=== PATIENT | female | born 1980 | race Two or more races ===

== ENCOUNTER 2019-05-13 00:06 | Emergency (ER) | payer MEDICAID ==
[~2019-05-13] VITALS: Ht 160 cm; Wt 86.2 kg
[~2019-05-13 00:06] MED LIST: PREN-96 OR
[2019-05-13 00:25] VITALS: BP 110/57
[2019-05-13 01:01] LABS: Basophils # (auto) 0.1 uL; Basophils % (auto) 0.8 % (0.0-2.0); Eosinophils # (auto) 0.1 uL; Eosinophils % (auto) 0.6 % (0.0-7.0); Hematocrit 40.1 % (36.0-46.0); Hemoglobin 13.6 g/dL (12.2-16.2); Lymphocytes # (auto) 1.6 uL; Lymphocytes % (auto) 9.5 % (10.0-50.0); Mean Corpuscular Volume 85.2 fL (80.0-100.0); Monocytes # (auto) 0.8 uL; Monocytes % (auto) 4.7 % (0.0-12.0); Neutrophils # (auto) 14.6 uL; Neutrophils % (auto) 84.4 % (37.0-80.0); Platelet Count (auto) 211 10^3/uL (140-450); Red Cell Distribution Width 14.3 % (11.8-14.3); White Blood Cell 17.2 10^3/uL (4.4-10.8)
[2019-05-13 01:11] LABS: Urine Bacteria FEW /hpf (None Seen); Urine Blood Negative /uL (Negative); Urine Mucus FEW (None Seen); Urine Specific Gravity 1.023 (1.001-1.035); Urine WBC 12 /hpf (0 - 5)
[2019-05-13 01:21] LABS: Albumin 2.9 g/dL (3.4-5.0); Calcium 8.4 mg/dL (8.5-10.1); Magnesium 2.1 mg/dL (1.6-2.6); Potassium 3.6 mmol/L (3.5-5.1)
[2019-05-13 01:23] LABS: BUN/Creatinine Ratio 14.6
[2019-05-13 01:26] LABS: Bilirubin, Total 0.3 mg/dL (0.2-1.0)
== END 2019-05-13 04:18 | disposition left against medical advice (07) ==
LOC: ER 00:06
DX: O21.8 Other vomiting complicating pregnancy (principal); Z3A.23 23 weeks gestation of pregnancy; Z53.21 Procedure and treatment not carried out due to patient leaving prior to being seen by health care provider
CPT/HCPCS: 36415; 80053; 81001; 83735; 84702; 85025

== ENCOUNTER 2019-09-09 12:10 | Observation (INO) | payer MEDICAID ==
[~2019-09-09] VITALS: Ht 162.6 cm; Wt 88.5 kg
== END 2019-09-09 15:50 | disposition home or self-care (01) | DRG 566 ==
LOC: LDRP 12:10
PROVIDERS: ADMIT Specialist; ATTEND Specialist
DX: O26.893 Other specified pregnancy related conditions, third trimester (principal); Z3A.40 40 weeks gestation of pregnancy
CPT/HCPCS: 59025; 76818; 81002; G0378

== ENCOUNTER 2019-09-11 15:04 | Observation (INO) | payer MEDICAID ==
[~2019-09-11] VITALS: Ht 162.6 cm; Wt 88.5 kg
== END 2019-09-11 16:40 | disposition home or self-care (01) | DRG 560 ==
LOC: LDRP 15:04
PROVIDERS: ADMIT Obstetrics & Gynecology; ATTEND Obstetrics & Gynecology
DX: O48.0 Post-term pregnancy (principal); Z37.0 Single live birth
CPT/HCPCS: 76818; G0378; 81002

== ENCOUNTER 2019-09-11 22:06 | Inpatient (IN) | payer MEDICAID ==
[~2019-09-11] VITALS: Ht 162.6 cm; Wt 88.5 kg
[2019-09-11] MEDS ORDERED: LACT. RINGERS/OXYTOCIN 20UNITS 1,000 ML IV SCH (22:27)
[2019-09-11] MEDS ORDERED: PHISODERM TOP SOLN 240ML BTL TOP PRN (22:30)
[2019-09-11] MEDS ORDERED: WITCH HAZEL-GLYCERIN PAD TOP PRN (22:30)
[2019-09-11] MEDS: LACTATED RINGER'S 1,000 ML IV SCH (22:30)
[2019-09-11] MEDS ORDERED: DERMOPLAST 60ML BOTTLE TOP PRN (22:30)
[2019-09-11] MEDS ORDERED: LIDOCAINE 2%HCL (LOCAL ANESTH.) INJ 20ML MDV ID ONE (22:30)
[2019-09-11] MEDS ORDERED: METHYLERGONOVINE MALEATE 0.2 MG/ML AMP IM PRN (22:30)
[2019-09-11] MEDS ORDERED: CARBOPROST TROMETHAMINE 250 MCG/1ML VIAL IM PRN (22:30)
[2019-09-11 23:15] LABS: Basophils # (auto) 0 10 ^3/uL (0-0.2); Basophils % (auto) 0.4 % (0.0-2.0); Eosinophils # (auto) 0.1 10 ^3/uL (0-0.8); Eosinophils % (auto) 0.7 % (0.0-7.0); Lymphocytes # (auto) 2.3 10 ^3/uL (0.4-5.4); Lymphocytes % (auto) 25.8 % (10.0-50.0); Mean Corpuscular Hemoglobin 29.8 pg (28.0-32.0); Mean Corpuscular Hgb Conc. 34.2 g/dL (32.0-36.0); Monocytes # (auto) 0.8 10 ^3/uL (0-1.3); Monocytes % (auto) 8.9 % (0.0-12.0); Neutrophils # (auto) 5.8 10 ^3/uL (1.6-8.6); Neutrophils % (auto) 64.2 % (37.0-80.0); Platelet Count (auto) 144 10^3/uL (140-450); Red Blood Cells 4.72 10^6/uL (4.0-5.20); Red Cell Distribution Width 14.2 % (11.8-14.3); White Blood Cell 9.1 10^3/uL (4.4-10.8)
[2019-09-11 23:20] LABS: Urine Bacteria NONE SEEN /hpf (None Seen); Urine Blood Negative /uL (Negative); Urine Specific Gravity 1.005 (1.001-1.035); Urine WBC <1 /hpf (0 - 5)
[2019-09-11 23:29] LABS: INR 0.92 (0.9-1.15); Partial Thromboplastin Time 31.2 sec (23.64-32.05)
[2019-09-11 23:34] LABS: Amphetamine Screen, Urine NEGATIVE (NEGATIVE); Barbiturate Scree,Urine NEGATIVE (NEGATIVE); Benzodiazephine Screen, Urine NEGATIVE (NEGATIVE); Cannabinoid Screen, Urine NEGATIVE (NEGATIVE); Cocaine Screen, Urine NEGATIVE (NEGATIVE); Opiate Scree,Urine NEGATIVE (NEGATIVE); Phencyclidine Screen, Urine NEGATIVE (NEGATIVE)
[2019-09-11 23:35] LABS: Albumin 2.6 g/dL (3.4-5.0); BUN/Creatinine Ratio 23.3; Calcium 8.3 mg/dL (8.5-10.1); Potassium 3.7 mmol/L (3.5-5.1)
[2019-09-11 23:38] LABS: Bilirubin, Total 0.4 mg/dL (0.2-1.0); Total Protein 6.8 g/dL (6.4-8.2)
[2019-09-12] MEDS ORDERED: miSOPROStol 50 MCG per PRE-CUT 1/2 TAB PR PRN
[2019-09-12] MEDS ORDERED: miSOPROStol 50 MCG per PRE-CUT 1/2 TAB PO PRN
[2019-09-12] MEDS: miSOPROStol 50 MCG per PRE-CUT 1/2 TAB PO PRN ×2 (00:57→04:58)
[2019-09-12] MEDS: LACTATED RINGER'S 1,000 ML IV SCH ×3 (04:01→15:28)
[2019-09-12] MEDS ORDERED: TERBUTALINE SULFATE 1 MG/ML 1ML VIAL SC PRN (07:45)
[2019-09-12] MEDS ORDERED: LACT. RINGERS/OXYTOCIN 20UNITS 1,000 ML IV SCH ×2 (09:00→19:12)
[2019-09-12] MEDS ORDERED: miSOPROStol 100 mcg TAB ONE (10:42)
[2019-09-12] MEDS ORDERED: PROMETHAZINE HCL 25 MG/ML 1ML IV PRN (14:15)
[2019-09-12] MEDS ORDERED: BUTORPHANOL TARTRATE 2 MG/1 ML VIAL IV PRN (14:15)
[2019-09-12] MEDS ORDERED: SODIUM CHLORIDE 0.9% 1,000 ML IUPC SCH (15:15)
[2019-09-12] MEDS ORDERED: SODIUM CHLORIDE 0.9% 300 ML IUPC ONE (15:15)
[2019-09-12] MEDS ORDERED: NALOXONE HCL 0.4 MG/ML VIAL IV ONE (15:30)
[2019-09-12] MEDS ORDERED: fentaNYL 200mCg/100ml W ROPIVA 100 ML EPI SCH ×2 (15:30→16:00)
[2019-09-12] MEDS ORDERED: ePHEDrine SULFATE 50 MG/ML AMP IV ONE (15:30)
[2019-09-12] MEDS ORDERED: LACTATED RINGER'S 1,000 ML IV ONE (16:15)
[2019-09-12] MEDS ORDERED: LACT. RINGERS/OXYTOCIN 20UNITS 500 ML IV ONE (18:12)
[2019-09-12] MEDS ORDERED: ACETAMINOPHEN 325 MG TAB PO PRN (18:15)
[2019-09-12] MEDS ORDERED: IBUPROFEN 600 MG TAB PO PRN (18:15)
[2019-09-12 23:00] VITALS: BP 116/55
[2019-09-13 03:00] VITALS: BP 97/55
[2019-09-13 04:06] LABS: RPR Non Reactive (Non Reactive)
[2019-09-13 07:00] VITALS: BP 117/67
[2019-09-13 10:30] VITALS: BP 116/76
[2019-09-13 15:15] VITALS: BP 116/76
== END 2019-09-13 17:42 | disposition home or self-care (01) | DRG 560 ==
LOC: LDRP 22:06 → OBSVTOIN 22:06
PROVIDERS: ADMIT Obstetrics & Gynecology; ATTEND Obstetrics & Gynecology
PROC: 10E0XZZ Delivery of Products of Conception, External Approach (ICD-10-PCS; principal; 2019-09-11)
PROC: 3E0R3BZ Introduction of Anesthetic Agent into Spinal Canal, Percutaneous Approach (ICD-10-PCS; 2019-09-11)
PROC: 00HU33Z Insertion of Infusion Device into Spinal Canal, Percutaneous Approach (ICD-10-PCS; 2019-09-11)
PROC: 10907ZC Drainage of Amniotic Fluid, Therapeutic from Products of Conception, Via Natural or Artificial Opening (ICD-10-PCS; 2019-09-11)
PROC: 0HQ9XZZ Repair Perineum Skin, External Approach (ICD-10-PCS; 2019-09-11)
DX: O48.0 Post-term pregnancy (principal); O69.1XX0 Labor and delivery complicated by cord around neck, with compression, not applicable or unspecified; O70.0 First degree perineal laceration during delivery; Z37.0 Single live birth; Z3A.40 40 weeks gestation of pregnancy
CPT/HCPCS: 36415; 51702; 59025; 59409; 62282; 76818; 80053; 80307; 81001; 81002; 84112; 85025; 85610; 85730; 86592; 86850; 86900; 86901; 94760; 96361; 96366; 96372; 96374; 96375; G0378; J2590